=== PATIENT | male | born 1950 | race Caucasian/White ===

== ENCOUNTER → 2017-06-08 | Outpatient (CLI) | payer OTHER, MEDICAID | LOC: BRMIMAGING 08:37 | PROVIDERS: ATTEND Internal Medicine | DX: K74.60 Unspecified cirrhosis of liver (principal); K80.20 Calculus of gallbladder without cholecystitis without obstruction | CPT/HCPCS: 76705-PO ==

== ENCOUNTER → 2017-07-24 | Outpatient (CLI) | payer OTHER, MEDICAID | LOC: CIMAGING 14:10 | PROVIDERS: ATTEND Orthopaedic Surgery | DX: M19.011 Primary osteoarthritis, right shoulder (principal); M25.411 Effusion, right shoulder; M24.011 Loose body in right shoulder; R91.8 Other nonspecific abnormal finding of lung field | CPT/HCPCS: 73200-PO ==

== ENCOUNTER 2017-08-07 10:31 | Inpatient (IN) | payer OTHER, MEDICAID ==
--- NOTE | 2017-08-07 09:40 | PDHPUP ---
History & Physical Update H&P update statement: This history and physical update is based on an assessment of the patient which was completed after admission or registration (within 24 hours), but prior to the surgery/procedure. H&P update: H&P reviewed & patient examined, no change in patient's condition since H&P completed H&P changes: no changes since patient pre op visit on 07/27/[address] trejo
[~2017-08-07 10:31] MED LIST: BISACODYL 5 MG EC TAB PO ONE; LIDOCAINE 1% 2 ML INJ ID PRN; LR 1,000 ML IV ONE; LR 1,000 ML IV SCH; ONDANSETRON 4 MG/2 ML VIAL IVP ONE; ceFAZolin 2 GM/DEXTROSE 100 ML IV ONE
[2017-08-07] MEDS ORDERED: ROPIVACAINE HCL 20 MG/10 ML INJ EP ONE (13:24)
[2017-08-07] MEDS ORDERED: LIDOCAINE 1% 2 ML INJ ONE (13:56)
[2017-08-07] MEDS ORDERED: CEFAZOLIN 2 GM/DEXTROSE/100 ML BAG IV ONE (13:56)
--- NOTE | 2017-08-07 14:11 | PDANEPAE ---
ANE History of Present Illness R total shoulder arthroplasty ANE Past Medical History - Cardiovascular History Hx Hypertension: No Hx Arrhythmias: No Hx Chest Pain: No Hx Coronary Artery / Peripheral Vascular Disease: No Hx CHF / Valvular Disease: No Hx Palpitations: No - Pulmonary History Hx COPD: No Hx Asthma/Reactive Airway Disease: No Hx Recent Upper Respiratory Infection: No Hx Oxygen in Use at Home: No Hx Sleep Apnea: No Sleep Apnea Screening Result - Last Documented: Negative - Neurologic History Hx Cerebrovascular Accident: No Hx Seizures: Yes Hx Dementia: No Neurologic History Comment: SEIZURE R/T [facility] - Endocrine History Hx Diabetes: No Hypothyroid: No Obesity: no - Renal History Hx Renal Disorders: No - Liver History Hx Hepatic Disorders: Yes Hepatic History Comment: CIRROSIS - Neurological & Psychiatric Hx Hx Neurological and Psychiatric Disorders: No - Cancer History Hx Cancer: No - Congenital Disorder History Hx Congenital Disorders: No - GI History GERD: no Hx Gastrointestinal Disorders: No - Other Health History Other Health History: LEGS DRYNESS - Chronic Pain History Chronic Pain: Yes (R shoulder, on opioids for about 15 years) ANE Review of Systems Review of Systems: - Exercise capacity METS (RN): 4 METS ANE Patient History - Allergies Allergies/Adverse Reactions: No Known Allergies Allergy (Verified 08/02/17 12:21) - Home Medications Home Medications: Gabapentin 08/02/17 [Last Taken 08/07/17 06:00] Keppra 08/02/17 [Last Taken 08/07/17 06:00] Oxycodone HCl 08/02/17 [Last Taken 08/07/17 06:00] - NPO status NPO Since - Liquids (Date): 08/07/17 NPO Since - Liquids (Time): 09:00 NPO Since - Solids (Date): 08/06/17 NPO Since - Solids (Time): 22:00 - Smoking Hx Smoking Status: Light smoker - Family Anes Hx Family Hx Anesthesia Complications: NONE ANE Labs/Vital Signs - Vital Signs Blood Pressure: 134/88 Heart Rate: 71 Respiratory Rate: 20 O2 Sat (%): 91 Height: 182.88 cm Weight: 85.275 kg
[2017-08-07] MEDS ORDERED: MIDAZOLAM 2 MG/2 ML VIAL IVP ONE (14:16)
[2017-08-07] MEDS ORDERED: LIDOCAINE 1% 2 ML INJ ID PRN (14:19)
[2017-08-07] MEDS ORDERED: PROPOFOL 200 MG/20 ML VIAL ONE (14:27)
[2017-08-07] MEDS ORDERED: fentaNYL 100 MCG/2 ML INJ ONE ×2 (14:27→15:20)
[2017-08-07] MEDS ORDERED: clonIDINE 1 MG/10 ML VIAL EP ONE (14:28)
[2017-08-07] MEDS ORDERED: DEXAMETHASONE 4 MG/ML VIAL ONE (14:28)
[2017-08-07] MEDS ORDERED: ROPIVACAINE HCL 150 MG/30 ML INJ ONE (14:28)
[2017-08-07] MEDS ORDERED: ROCURONIUM 50 MG/5 ML VIAL ONE (14:28)
[2017-08-07] MEDS ORDERED: epHEDrine SULFATE 10 MG/ML SYR ONE (15:25)
[2017-08-07] MEDS ORDERED: PHENYLEPHRINE 10 MG/ML SDV ONE (15:40)
[2017-08-07] MEDS ORDERED: POLYMYXIN B SULFATE 500,000 UNIT/10 ML SYR IRR ONE (16:14)
[2017-08-07] MEDS ORDERED: BACITRACIN 50,000 UNITS/10 ML SYR IRR ONE (16:14)
[2017-08-07] MEDS ORDERED: ONDANSETRON 4 MG/2 ML VIAL ONE (16:54)
[2017-08-07] MEDS ORDERED: KETAMINE 100 MG/10 ML SYR ONE (16:59)
[2017-08-07] MEDS ORDERED: NEOSTIGMINE METHYLSULFATE 3 MG/3 ML SYR ONE (17:05)
[2017-08-07] MEDS ORDERED: GLYCOPYRROLATE 0.2 MG/1 ML VIAL ONE (17:05)
[2017-08-07] MEDS ORDERED: OXYCODONE/APAP 5/325 TAB PO PRN (17:19)
[2017-08-07] MEDS ORDERED: ONDANSETRON 4 MG/2 ML VIAL IVP PRN (17:19)
[2017-08-07] MEDS ORDERED: HYDROCODONE/APAP 5/325 TAB PO PRN (17:19)
[2017-08-07] MEDS ORDERED: HYDROmorphONE/DILAUDID 1 MG/ML INJ IVP PRN ×2 (17:19→17:29)
[2017-08-07] MEDS ORDERED: PROMETHAZINE HCL 25 MG/ML INJ IVP PRN (17:19)
[2017-08-07] MEDS ORDERED: ACETAMINOPHEN 325 MG TAB PO PRN (17:19)
--- NOTE | 2017-08-07 17:19 | POSTOPPROG ---
Post Op Note Date of Operation: 08/07/17 Surgeon: Yevegniy Reyez Route Aide: harpreet napier pa-c Anesthesia: GET(General Endotracheal) Pre-op Diagnosis: right shoulder oa Post-op Diagnosis: right shoulder oa Indication: right shoulder oa Procedure: right total shoulder arthroplasty Findings: right shoulder grade 4 oa Inf/Abcess present in the surg proc area at time of surgery?: No Depth: Deep Incisional (Fascial) EBL: 200 Complications: none
[2017-08-07] MEDS ORDERED: NALOXONE HCL 0.4 MG/ML INJ IVP PRN (17:29)
[2017-08-07] MEDS ORDERED: fentaNYL 100 MCG/2 ML INJ IVP PRN (17:29)
[2017-08-07] MEDS ORDERED: D5W 1/2 NS W/ 20 KCl/L 1,000 ML IV SCH (17:30)
--- NOTE | 2017-08-07 17:34 | POSTANESTH ---
Post Anesthetic Evaluation Cardiovascular Status: Normal, Stable Respiratory Status: Normal, Stable Level of Consciousness/Mental Status: Can Participate in Eval Pain Control: Adequate, Prn Tx Ordered Nausea/Vomiting Control: Adequate, Prn Tx Ordered Complications Possibly Related to Anesthesia: None Noted (No pain at present. Reports numbness in R hand, able to move medial 3 digits.)
[2017-08-07] MEDS ORDERED: KETOROLAC 15 MG/1 ML SDV IVP SCH (18:00)
[2017-08-07 19:03] VITALS: PULSE 60
[2017-08-07 19:07] VITALS: BP 100/72; RESP 16
--- NOTE | 2017-08-07 20:00 | GOP ---
[f rep st] OPERATIVE REPORT DATE OF OPERATION: 08/07/2017 SURGEON: Yevgeniy Reyez MD PROJECT MANAGER ENTERTAINMENT AND MEDIA: Ramiro Jimenez PA-C; medically required for positioning of the arm and careful retrac tion of vital neurovascular structures in total shoulder replacement. PREOPERATIVE DIAGNOSIS: 1. Right end-stage osteoarthritis, shoulder. 2. Rotator cuff tear. POSTOPERATIVE DIAGNOSIS: 1. Right end-stage osteoarthritis, shoulder. 2. Rotator cuff tear. PROCEDURE PERFORMED: 1. Open total shoulder, right. 2. Open right shoulder rotator cuff repair. FINDINGS: INDICATIONS: Patient is a 67-year-old male who had what sounds like a previous Vilma-Stack proced ure on the right shoulder with subscap advancements about 40 to 50 years ago for instability. He has had shoulder pain for quite some time. Clinical radiographic MRI confirm a partial cuff tear with e nd-stage arthritis and synovitic tissue with what looks like a healthy subscap muscle but the tendon looks advanced laterally to the lateral intertubercular groove. The patient elects for operative intervention after failing conservative management. Patient identified in the preoperative holding area. Consent, laterality, and preoperative antibioti cs were confirmed delivered. All questions were answered. The right shoulder was identified. Signi ficant others were available for questions and answers. DESCRIPTION OF PROCEDURE: Patient brought into the operating room, interscalene block, general anest hesia, 30-degree head of bed, beach chair position. Back of the table was still in place. The right upper extremity prepped and draped in the usual sterile fashion. Surgical time-out was performed. Missy russell. Deltopectoral interval. He did have an axillary incision that was about 40 years old . Very little subcutaneous tissue. Cephalic vein was diminutive. He did have some scar tissue in t he deltopectoral area. We found a nice natural plane in the deltopectoral interval. We freed up the subdeltoid adhesions. Found the conjoined tendon. We had Kolbel retractor underneath the deltoid a nd conjoined tendon. There was a mass of scar tissue but with progressive external rotation, we saw the fibers of the subscapularis. We palpated the bicipital groove. Went ahead and made a cautery ri ght down to the bicipital groove. There was a nice healthy thick 1 cm cuff of tissue. We traced thi s to what we believed was the rotator interval. He had a partial cuff tear with a longitudinal split full-thickness tear. There was no biceps. With progressive external rotation, we peeled off the kitchen bscap. There was a mass of synovitic tissue anteriorly in the capsule. We found the axillary nerve. Finger protection. Did an inferior capsule release. Progressive external rotation addu ction and external rotation. We delivered the head and dislocated the head. We did a freehand cut o steotomy. It measured about a 50-52 diameter with about 30-degrees of retroversion. We prepared the humeral canal up to a size 11 and placed the osteotomy protector. The arm in a padded Hickey, we post erior subluxed the head. We developed the glenoid view. We went ahead and found the center-center p osition and with cannulated system and nautilus reamers, we reamed a large. We prepared the glenoid for a cemented, vaulted large glenoid. We had nice fit and fill with no evidence of protruding out t he bone posteriorly. We then turned back once the real implant was cemented in place. We re-dislocated the head and drill ed 2 holes in the bicipital groove and passed sutures from the lateral part of the implant through. We chose a trial head. Looked like a 50, and then chose the real head with the most of the offset an teriorly. We then placed mattress stitches through the medial aspect to preserve the length-tension relationship of the old Vilma-Stack procedure and tied the top limbs, bottom limbs, crisscross genao bs, and medial limbs according to the Arthrex subscap technique, peel technique. The wound was copio usly washed out with 500 cc of warm normal saline. We put 2 [id number] stitches in the full-thi ckness defect in the rotator cuff for the rotator cuff repair. We did a 2-0 PDS, 3-0 Monocryl, 3-0 P rolene for closure. 10 cc of 0.2% ropivacaine and a sterile dressing with Mastisol, Steri-Strips, Xer oform 4x4s, and Mepilex dressing. Blood loss was 200. IMPLANTS USED: 1. Arthrex short-stemmed #11. 2. 50 x 21 mm head. 3. Large vaulted glenoid. DISPOSITION: Extubated, awake to the PACU in good condition. Total surgical time was 2 hours. /[id number]/MODL
[2017-08-07 20:36] VITALS: TEMP 97.7; O2SAT 93
[2017-08-07] MEDS ORDERED: DOCUSATE SODIUM 100 MG CAP PO SCH (21:00)
[2017-08-07] MEDS ORDERED: ceFAZolin 2 GM/DEXTROSE 100 ML IV SCH (22:00)
[2017-08-08] MEDS ORDERED: ENOXAPARIN 40 MG/0.4 ML SYR SC SCH (09:00)
== END 2017-08-07 20:10 | disposition home or self-care (01) | DRG 483 ==
LOC: F3N 13:23
PROVIDERS: ADMIT Orthopaedic Surgery; ATTEND Orthopaedic Surgery
DX: M19.011 Primary osteoarthritis, right shoulder (principal); M75.101 Unspecified rotator cuff tear or rupture of right shoulder, not specified as traumatic
CPT/HCPCS: C1713; J0171; J0690; J0735; J1100; J2250; J2370; J2405; J2704; J2710; J2795; J3010